=== PATIENT | male | born 1960 | race Two or more races ===

== ENCOUNTER 2017-11-16 10:40 | Emergency (ER) | payer SELFPAY ==
[~2017-11-16] VITALS: Ht 188 cm; Wt 92.1 kg
--- NOTE | 2017-11-16 11:22 | NUR ---
XRAY AT BS
[2017-11-16 11:26] VITALS: BP 139/95
[2017-11-16] MEDS ORDERED: IPRATROPIUM NEB FS 0.5 MG/2.5 ML AMPUL.NEB NEB ONE (11:30)
[2017-11-16] MEDS ORDERED: ALBUTEROL FS 2.5 MG/3 ML VIAL.NEB CONTNEB ONE (11:30)
--- NOTE | 2017-11-16 11:40 | NUR ---
CALLED PARAS CALDERON
[2017-11-16] MEDS ORDERED: ALBUTEROL FS 2.5 MG/0.5 ML VIAL.NEB ONE (11:48)
[2017-11-16] MEDS ORDERED: IPRATROPIUM NEB FS 0.5 MG/2.5 ML AMPUL.NEB ONE (11:48)
== END 2017-11-16 12:49 | disposition home or self-care (01) ==
LOC: ER 10:43
DX: J45.901 Unspecified asthma with (acute) exacerbation (principal); E78.00 Pure hypercholesterolemia, unspecified; Z91.013 Allergy to seafood
CPT/HCPCS: 71010; 94640; 99283; A4606; Z7610